=== PATIENT | male | born 1985 | race Caucasian/White ===

== ENCOUNTER 2017-04-30 07:30 | Emergency (ER) | payer OTHER ==
[~2017-04-30] VITALS: Ht 177.8 cm; Wt 77.1 kg
== END 2017-04-30 16:39 | disposition home or self-care (01) ==
LOC: ER 07:30
DX: R10.13 Epigastric pain (principal)

== ENCOUNTER → 2017-06-29 | Emergency (ER) | payer OTHER ==
[~2017-06-29] VITALS: Ht 172.7 cm; Wt 68.0 kg
== END | disposition home or self-care (01) ==
LOC: ER 05:56
DX: K51.00 Ulcerative (chronic) pancolitis without complications (principal); K29.70 Gastritis, unspecified, without bleeding